=== PATIENT | male | born 1950 | race Two or more races ===

== ENCOUNTER 2021-09-20 05:29 | Day surgery (SDC) | payer OTHER ==
[2021-09-17 16:27] VITALS: BMI 29.6
[2021-09-20 09:02] LABS: BASO % 0.7 % (0-2.0); EOS % 8.5 % (0-4.5); HEMATOCRIT 42.1 % (35.4-49); HEMOGLOBIN 14.1 GM/dL (11.7-16.9); LYMPH % 19.8 % (8-40); MCH 27.7 pg (25.7-33.7); MCHC 33.5 g/dl (32.0-35.9); MEAN CELL VOLUME 82.8 fl (80-96); MEAN PLT VOLUME 7.2 fl (7.5-11.1); MONO % 7.8 % (3.8-10.2); NEUT % 63.2 % (42.8-82.8); PLATELET COUNT 217 10^3/uL (134-434); RBC 5.09 M/mm3 (4.00-5.60); RDW 14.6 % (11.9-15.9); WHITE BLOOD COUNT 6.6 K/mm3 (4.0-10.0)
[2021-09-20 09:06] LABS: INR 0.99 (0.83-1.09); PROTHROMBIN TIME (PATIENT) 11.6 SEC (9.7-13.0)
[2021-09-20 09:23] LABS: CALCIUM 9.2 mg/dL (8.5-10.1)
[2021-09-20 09:24] LABS: ALBUMIN 3.6 g/dl (3.4-5.0)
[2021-09-20 09:27] LABS: CREATININE 1.1 mg/dL (0.55-1.3)
[2021-09-20 09:28] LABS: BILIRUBIN,TOTAL 0.8 mg/dL (0.2-1)
[2021-09-20 09:29] LABS: TOT PROT 6.6 g/dl (6.4-8.2)
[2021-09-20] MEDS ORDERED: LIDOCAINE HCL 1%, 10 MG/ML (20ML VIAL) ONE ×2 (11:46→12:15)
[2021-09-20] MEDS ORDERED: HEPARIN NA (PORCINE) 5,000 UNITS/ML 1ML VIAL ONE ×3 (11:46→15:24)
[2021-09-20] MEDS ORDERED: PROPOFOL 20 ML ONE ×2 (11:50→12:37)
[2021-09-20] MEDS ORDERED: MIDAZOLAM HCL 2 MG/2 ML SINGLE DOSE VIAL ONE (11:50)
[2021-09-20] MEDS ORDERED: LIDOCAINE HCL 1%, 10 MG/ML (20ML VIAL) PNB ONE (12:48)
[2021-09-20] MEDS ORDERED: ACETAMINOPHEN 325 MG TABLET (FP) ONE (16:13)
[2021-09-20] MEDS ORDERED: ACETAMINOPHEN 325 MG TABLET (FP) PO ONE (16:15)
[2021-09-20 16:59] VITALS: BP 154/90; PULSE 76; TEMP 98.1
== END 2021-09-20 16:35 | disposition home or self-care (01) ==
LOC: JASU-SURG 05:29
PROVIDERS: ATTEND Surgery Vascular Surgery
PROC: 047K3Z1 Dilation of Right Femoral Artery using Drug-Coated Balloon, Percutaneous Approach (ICD-10-PCS; principal; 2021-09-20 11:00)
DX: I70.211 Atherosclerosis of native arteries of extremities with intermittent claudication, right leg (principal)
CPT/HCPCS: 37224; C2623; 36415; 76000-TC-FY; 80053; 85025; 85610; 94760; J1644